=== PATIENT | male | born 1960 | race Caucasian/White ===

== ENCOUNTER 2023-01-20 14:20 | Outpatient (CLI) | payer OTHER, SELFPAY ==
--- NOTE | 2023-01-20 14:30 | MR_ITS ---
[address] [address] Phone:?[phone] Fax:?[phone] Referring Physician Information: Nolan Velez M.D. [id number] [facility] [address] Phone:?[phone] Fax:?[phone] Patient:Tor Rao D.O.B:?1960 Sex:?Male Phone:?[phone] [facility] MRN:?[id number] Exam Date:?01/20/2023 EXAM: MRI of the LEFT KNEE, without contrast CLINICAL HISTORY: Left knee pain. Evaluate for meniscal tear of the left knee. COMPARISONS: Plain radiographs 01/13/2023. TECHNICAL: MR sequences of the left knee: sagittals: PD, PDFS coronals: PD, STIR axials: PD, T2 FS CONTRAST: None SEDATION: None FINDINGS: Bones: No fracture, bone marrow contusion, or other suspicious bone marrow signal abnormality. 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 Retinacula: The medial and lateral retinacula are intact. Fat pads: Edema-like signal within the superolateral portion of the infrapatellar fat pad is associated with patellar tendon-lateral femoral condyle friction/patellar maltracking. The Insall Salvati index index measures 1.2. The patellotrochlear index measures 0.2. The lateral trochlear inclination angle measures 19 degrees. The tibial tubercle to trochlear groove distance measures 1.9 cm. Knee joint: Effusion: Physiologic amount of joint fluid. Popliteal cyst: Moderately sized popliteal cyst. Intra-articular bodies: None. Posteromedial corner: The semimembranosus and pes anserine tendons are intact. Medial compartment: Medial meniscus: 4.0 cm in length complex tear from the body through posterior horn of the medial meniscus. Associated 1.1 cm in craniocaudad dimension by 0.6 cm in AP dimension by 2.8 cm in transverse dimension posterior parameniscal cyst. Cartilage: Intact. Lateral compartment: Lateral meniscus: Intact. Cartilage: Intact. Ligaments: Anterior cruciate ligament: Intact. Posterior cruciate ligament: Intact. Medial collateral ligament: Intact. Posterior oblique ligament: Intact. Fibular collateral ligament: Intact. Posterolateral corner: The distal biceps femoris tendon, iliotibial band, popliteus tendon, popliteus muscle, popliteofibular ligament, and arcuate ligament are intact. Extensor mechanism: Patellar tendon: Intact. Quadriceps tendon: Intact. There is mild to moderate atrophy of the imaged portion of the semimembranosus muscle. IMPRESSION: 1. 4.0 cm in length complex tear from the body through posterior horn of the medial meniscus with an associated 1.1 x 0.6 x 2.8 cm posterior parameniscal cyst. 2. 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 3. Edema-like signal within the superolateral portion of the infrapatellar fat pad is associated with patellar tendon-lateral femoral condyle friction/patellar maltracking. Borderline decreased patellotrochlear index of 0.2. The tibial tubercle to trochlear groove distance measures 1.9 cm. The Insall Salvati index and lateral trochlear inclination angle measurements are within normal limits. 4. Moderately sized popliteal cyst. 5. No ligamentous injury or lateral meniscal tear of the left knee. RCB Electronically signed on 01/21/2023 7:40:00 AM by Vitaly Og M.D.
== END 2023-01-20 14:21 | disposition home or self-care (01) ==
LOC: MRI 14:21
PROVIDERS: Visit Provider Orthopaedic Surgery
DX: M25.562 Pain in left knee (principal); S83.232A Complex tear of medial meniscus, current injury, left knee, initial encounter
CPT/HCPCS: 73721